=== PATIENT | female | born 1960 | race Caucasian/White ===

== ENCOUNTER 2018-03-15 11:33 | Emergency (ER) | payer OTHER ==
[~2018-03-15] VITALS: Ht 167.6 cm; Wt 86.2 kg
[2018-03-15 12:28] LABS: ABSOLUTE BASOPHIL COUNT 0 /CUMM (0.0-0.2); ABSOLUTE EOSINOPHIL COUNT 0 /CUMM (0.0-0.7); ABSOLUTE GRANULOCYTE CT 8.2 /CUMM (1.4-6.5); ABSOLUTE LYMPH COUNT 0.6 /CUMM (1.2-3.4); ABSOLUTE MONOCYTE COUNT 0.2 /CUMM (0.10-0.60); BASOPHIL % 0.1 % (0.0-2.0); EOSINOPHIL % 0 % (0-5); HEMATOCRIT 43.1 % (37-47); MEAN CORPUSCULAR HGB CONC 34.3 G/DL (33.0-37.0); MEAN CORPUSCULAR VOLUME 81.8 FL (81.0-99.0); MEAN PLATELET VOLUME 7.6 FL (7.4-10.4); PLATELET COUNT 251 /CUMM (130-400); RED BLOOD CELL CT 5.27 /CUMM (4.20-5.40)
[2018-03-15 12:49] LABS: GRANULOCYTE % 91.6 % (42.2-75.2)
--- NOTE | 2018-03-15 14:02 | CT SCAN REPORT ---
EXAMINATION: CT ABDOMEN AND PELVIS WITHOUT CONTRAST CLINICAL INFORMATION: Left lower quadrant pain. History of diverticulitis. COMPARISON: None TECHNIQUE: Multidetector volumetric imaging was performed from the superior aspect of the liver through the pubic symphysis. Sagittal and coronal reformatted images were obtained on the technologist's workstation. DLP: 546 mGy-cm FINDINGS: LUNG BASES: The visualized lung bases are unremarkable. LIVER, GALLBLADDER, AND BILIARY TREE: Hypoattenuation of the hepatic parenchyma is consistent with steatosis. No focal lesions are identified. No peripheral biliary ductal dilatation. Liver is normal in size. Gallbladder is borderline hydropic without evidence of acute cholecystitis. A base of the gallbladder near the cystic duct. PANCREAS: Unremarkable. SPLEEN: Unremarkable. ADRENAL GLANDS: There is a 1.4 cm low-density left adrenal nodule with a density of 21 Hounsfield units. KIDNEYS AND URETERS: The kidneys are normal in size, shape, and attenuation. No hydronephrosis, hydroureter, or calculi seen. No perinephric stranding. BLADDER: Unremarkable GASTROINTESTINAL TRACT: There is moderate diverticulosis in the descending and sigmoid colon. No surrounding inflammatory changes are identified to indicate acute diverticulitis. Stomach, small bowel, and colon are normal in caliber. No intraperitoneal free fluid or free air. Appendix is normal. ABDOMINAL WALL: No significant hernia is appreciated. LYMPH NODES: Subcentimeter mesenteric and retroperitoneal lymph nodes are present. No pathologic adenopathy by size criteria. VASCULAR: Calcific atherosclerosis is present in the abdominal aorta and iliac arteries. No aneurysmal dilatation. PELVIC VISCERA: A fibroid is present at the left posterior aspect of the uterine body. Uterus and ovaries are otherwise unremarkable. OSSEOUS STRUCTURES: There is mild degenerative disc disease and facet arthropathy in the lumbar spine. No fracture. 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 IMPRESSION: 1. No acute intra-abdominal or intrapelvic abnormalities. 2. Moderate colonic diverticulosis in the descending and sigmoid colon. No acute diverticulitis. 3. Cholelithiasis and a hydropic gallbladder. No specific findings of acute cholecystitis. 4. Hepatic steatosis 5. A 1.4 cm indeterminant left adrenal nodule. In the absence of prior studies, consider follow-up adrenal protocol CT in one year. 6. Uterine fibroid.
--- NOTE | 2018-03-15 15:57 | ED GENERAL ADULT ---
History of Present Illness General Chief Complaint: Nausea, Vomiting, Diarrhea Stated Complaint: NAUSEA,VOMITTING X 1MNTH Source: patient Exam Limitations: no limitations Vital Signs & Intake/Output Vital Signs & Intake/Output Vital Signs Date Time Temp Pulse Resp B/P B/P Pulse O2 O2 Flow FiO2 Mean Ox Delivery Rate 03/15 1650 97.3 79 18 121/69 97 03/15 1156 99.1 99 18 139/86 97 Room Air Allergies Coded Allergies: Penicillins (Intermediate, RASH, DIFFICULTY BREATHING 03/15/18) Reconcile Medications Famotidine (Pepcid) 20 MG TABLET 1 TAB PO BID GERD Omeprazole 20 MG CAPSULE. 1 CAP PO DAILY GERD Ondansetron (Zofran Odt) 4 MG TAB.RAPDIS 1 TAB SL TID PRN nausea Triage Note: RECEIVED 57 YO FEMALE C/O NAUSEA, VOMITING AND INTERMITTENT DIARRHEA X ONE MONTH WITH LLQ AND EPIGASTRIC AREA PAIN. PT REPORTS CHILLS, UNABLE TO TOLERATE ANY PO. LAST VOMITED THIS AM AFTER DRINKING H20. PT WITH HX OF DIVERTICULITIS. Triage Nurses Notes Reviewed? yes Onset: Gradual Duration: week(s): Timing: constant HPI: 57 y/o female with h/o diverticulitis presenting with burning epigastric pain and constant nausea x1 month. Over the past month has had ~5 episodes of emesis. Reports decreased appetitie and difficulty tolerating po intake. Has seen her PMD for the same and was given zofran for ?viral gastritis. Also states she has chronic intermittent diarrhea, no changes to her baseline BM's. Denies fevers, dysuria, hematuria, melena, bloody stools. (Sendy Kenny) Past History Travel History Traveled to [place] past 21 day No Medical History Any Pertinent Medical History? see below for history Neurological: NONE EENT: NONE Cardiovascular: NONE Respiratory: NONE Gastrointestinal: diverticulitis Hepatic: NONE Renal: NONE Musculoskeletal: NONE Psychiatric: NONE Endocrine: NONE Blood Disorders: NONE Cancer(s): NONE Surgical History Surgical History: non-contributory Psychosocial History What is your primary language Upper Sorbian Tobacco Use: Never used Family History Hx Contributory? No (Sendy Kenny) Review of Systems Review of Systems Constitutional: Reports: no symptoms. EENTM: Reports: no symptoms. Respiratory: Reports: no symptoms. Cardiovascular: Reports: no symptoms. GI: Reports: see HPI. Genitourinary: Reports: no symptoms. Musculoskeletal: Reports: no symptoms. Skin: Reports: no symptoms. Neurological/Psychological: Reports: no symptoms. Hematologic/Endocrine: Reports: no symptoms. Immunologic/Allergic: Reports: no symptoms. (Jovani PEDERSON,Sendy) Physical Exam Physical Exam General Appearance: well developed/nourished, no apparent distress, alert, awake , comfortable Head: atraumatic, normal appearance Eyes: Bilateral: normal appearance. Neck: normal inspection Respiratory: normal breath sounds, lungs clear Cardiovascular: regular rate/rhythm Gastrointestinal: soft, tenderness (epigastrium), no rebound or guarding Back: normal inspection Extremities: normal inspection Neurologic/Psych: awake, alert, oriented x 3, normal gait, normal mood/affect Skin: intact, normal color, warm/dry Core Measures ACS in differential dx? No CVA/TIA Diagnosis: No Sepsis Present: No Sepsis Focused Exam Completed? No (Sendy Kenny) Progress Differential Diagnoses I considered the following diagnoses in my evaluation of the patient: [Gastritis vs GERD vs PUD vs pancreatitis vs biliary ] Plan of Care: Orders Procedure Date/time Status LACTIC ACID 03/15 1457 Active URINALYSIS 03/15 1157 Complete TROPONIN LEVEL 03/15 1157 Complete LIPASE 03/15 1157 Complete LACTIC ACID 03/15 1157 Complete COMPREHENSIVE METABOLIC PANEL 03/15 1157 Complete CBC WITHOUT DIFFERENTIAL 03/15 1157 Complete AMYLASE 03/15 1157 Complete EKG 03/15 1157 Active Laboratory Tests 03/15/18 1405: Urine Color YEL, Urine Clarity CLEAR, Urine pH 6.0, Ur Specific [place] 1.025, Urine Protein NEG, Urine Ketones TRACE H, Urine Nitrite NEG, Urine Bilirubin NEG, Urine Urobilinogen 0.2, Ur Leukocyte Esterase NEG, Ur Microscopic EXAM NOT REQUIRED, Urine Hemoglobin NEG, Urine Glucose NEG 03/15/18 1214: Anion Gap 11, Estimated GFR > 60, BUN/Creatinine Ratio 21.4, Glucose 112 H, Lactic Acid 1.1, Calcium 8.6, Total Bilirubin 0.8, AST 43 H, ALT 62 H, Alkaline Phosphatase 78, Troponin I < 0.01, Total Protein 7.5, Albumin 4.0, Globulin 3.5, Albumin/Globulin Ratio 1.1, Amylase 50, Lipase 84, CBC w Diff NO MAN DIFF REQ, RBC 5.27, MCV 81.8, MCH 28.0, MCHC 34.3, RDW 14.0, MPV 7.6, Gran % 91.6 H, Lymphocytes % 6.2 L, Monocytes % 2.1, Eosinophils % 0, Basophils % 0.1 , Absolute Granulocytes 8.2 H, Absolute Lymphocytes 0.6 L, Absolute Monocytes 0.2, Absolute Eosinophils 0, Absolute Basophils [address] scan IMPRESSION: 1. No acute intra-abdominal or intrapelvic abnormalities. 2. Moderate colonic diverticulosis in the descending and sigmoid colon. No acute diverticulitis. 3. Cholelithiasis and a hydropic gallbladder. No specific findings of acute cholecystitis. 4. Hepatic steatosis 5. A 1.4 cm indeterminant left adrenal nodule. In the absence of prior studies, consider follow-up adrenal protocol CT in one year. 6. Uterine fibroid. Pt informed of above incidental findings. Reports resolution of symptoms after zofran, pepcid, and GI cocktail. Suspect GERD +/- PUD. Will start on omperazole and pepcid. Given zofran prn. Already followed by GI and will make f/u appt for further eval. Given strict return precautions. Initial ED EKG: none (Sendy Kenny) Departure Departure Disposition: HOME OR SELF CARE Condition: Stable Clinical Impression Primary Impression: Epigastric pain Secondary Impressions: Nausea and vomiting Referrals: Unknown (PCP/Family) Additional Instructions: Take omeprazole and famotidine as prescribed. Use zofran as needed for nausea. Follow up with your paper supervisor for re-evaluation. Return to the emergency department for any new or worsening symptoms. Departure Forms: Customer Survey General Discharge Information Prescriptions: Current Visit Scripts Ondansetron (Zofran Odt) 1 TAB SL TID PRN nausea #20 TAB Famotidine (Pepcid) 1 TAB PO BID #60 TAB Omeprazole 1 CAP PO DAILY #30 CAP (Sendy Kenny) PA/REGISTERED SAFETY ENGINEER Co-Sign Statement Statement: ED Attending supervision documentation- [] I saw and evaluated the patient. I have also reviewed all the pertinent lab results and diagnostic results. I agree with the findings and the plan of care as documented in the PA's/REGISTERED SAFETY ENGINEER's documentation. [X] I have reviewed the ED Record and agree with the PA's/REGISTERED SAFETY ENGINEER's documentation. [] Additions or exceptions (if any) to the PAs/REGISTERED SAFETY ENGINEER's note and plan are summarized below: [] (Maci YANG,Robert Dove) Critical Care Note Critical Care Note Critical Care Time: non-applicable (Jovani PEDERSON,Sendy)
[2018-03-15 16:50] VITALS: BP 121/69
[2018-03-15] MEDS ORDERED: PEPCID20 M1 PO (17:30)
[2018-03-15] MEDS ORDERED: OMEPRAZOLE20 M2 PO (17:30)
[2018-03-15] MEDS ORDERED: ZOFRAN ODT4 M1 SL (17:30)
== END 2018-03-15 17:41 ==
LOC: ERH 11:33
PROVIDERS: Physician Assistant Medical
DX: R10.13 Epigastric pain (principal); R11.2 Nausea with vomiting, unspecified
CPT/HCPCS: 74176; 81003; 93005; 93010; J3101